=== PATIENT | male | born 1955 | race Two or more races ===

== ENCOUNTER 2023-07-11 12:46 | Inpatient (IN) | payer MEDICARE, OTHER ==
[~2023-07-11] VITALS: Ht 170.2 cm; Wt 77.7 kg
[2023-07-11 16:08] LABS: Basophils # (auto) 0 10 ^3/uL (0-0.2); Basophils % (auto) 0.3 % (0.0-2.0); Eosinophils # (auto) 0.1 10 ^3/uL (0-0.8); Eosinophils % (auto) 0.6 % (0.0-7.0); Hematocrit 38.9 % (41.0-53.0); Hemoglobin 13.3 g/dL (13.5-17.5); Lymphocytes # (auto) 1.3 10 ^3/uL (0.4-5.4); Lymphocytes % (auto) 14.5 % (10.0-50.0); Mean Corpuscular Hemoglobin 31.3 pg (28.0-32.0); Mean Corpuscular Hgb Conc. 34.1 g/dL (32.0-36.0); Mean Corpuscular Volume 91.6 fL (80.0-100.0); Monocytes # (auto) 0.7 10 ^3/uL (0-1.3); Monocytes % (auto) 7.8 % (0.0-12.0); Neutrophils # (auto) 6.6 10 ^3/uL (1.6-8.6); Neutrophils % (auto) 76.8 % (37.0-80.0); Red Blood Cells 4.25 10^6/uL (4.5-5.90); White Blood Cell 8.6 10^3/uL (4.4-10.8)
[2023-07-11 16:19] LABS: Alanine Aminotransferase 28 U/L (7-40); Albumin 4.2 g/dL (3.2-4.8); Alkaline Phosphatase 94 U/L (46-116); Anion Gap 8 (5-15); Aspartate Aminotransferase 20 U/L (13-40); BUN/Creatinine Ratio 17.3 (10.0-20.0); Bilirubin, Total 0.9 mg/dL (0.2-1.0); Blood Urea Nitrogen 13 mg/dL (9-23); Carbon Dioxide 25 mmol/L (20-30); Chloride 102 mmol/L (98-107); Glucose 136 mg/dL (74-106); Potassium 4.3 mmol/L (3.5-5.1); Sodium 135 mmol/L (136-145); Total Protein 6.9 g/dL (5.7-8.2)
[2023-07-11] MEDS: PIPERACILLIN-TAZOB 3.375GM 100 ML IV ONE (17:25)
[2023-07-11] MEDS: CLINDAMYCIN 300MG IV 50 ML IV ONE (17:26)
[2023-07-11 18:07] LABS: Urine Bacteria None Seen /hpf (None Seen); Urine WBC None Seen /hpf (0 - 3)
[2023-07-11] MEDS ORDERED: DOCUSATE SOD 100 MG CAP PO PRN (18:15)
[2023-07-11] MEDS ORDERED: DEXTROSE (50%) 50ML SYRG IV PRN (18:15)
[2023-07-11] MEDS ORDERED: ENOXAPARIN SOD 40 MG/0.4 ML SYRINGE SC SCH (18:15)
[2023-07-11] MEDS ORDERED: ONDANSETRON HCL 4 MG/2 ML VIAL IV PRN (18:15)
[2023-07-11 18:23] LABS: Urine Blood Negative /uL (Negative); Urine Clarity Clear (Clear); Urine Color Colorless (Yellow); Urine Protein, UAD Negative (Negative); Urine Specific Gravity 1.002 (1.001-1.035); Urine Urobilinogen Normal (Negative)
[2023-07-11 19:02] LABS: Prothrombin Time 10.5 sec (9.3-11.8)
[2023-07-11] MEDS: SODIUM CHLORIDE 0.9% 1,000 ML IV SCH (21:13)
[2023-07-11] MEDS: ENOXAPARIN SOD 80 MG/0.8ML SYRINGE SC SCH (21:13)
[2023-07-11] MEDS: InsuLIN REG 1unit/0.01ml Soln (100units/ml) SC SCH (21:40)
[2023-07-11] MEDS: ACCU-CHEK COMFORT CURVE STRIP VI SCH (21:40)
[2023-07-11] MEDS ORDERED: CLINDAMYCIN 300MG IV 50 ML IV SCH (22:00)
[2023-07-12] VITALS (8 sets, daily range): BP systolic 121–150; BP diastolic 72–85; PULSE 79–110; RESP 16–19; TEMP 97.2–98.6; O2SAT 95–99
[2023-07-12] MEDS: MORPHINE SULFATE INJ 2 MG/ml SYRG IV PRN (00:53)
[2023-07-12] MEDS ORDERED: LACT12CR17 EX (01:08)
[2023-07-12] MEDS ORDERED: DULO20CA PO (01:08)
[2023-07-12] MEDS ORDERED: ASCO500T11 PO (01:08)
[2023-07-12] MEDS ORDERED: ATOR40TA52 PO (01:08)
[2023-07-12] MEDS ORDERED: HYDR1TAB97 PO (01:08)
[2023-07-12] MEDS ORDERED: SITA100T7 PO (01:08)
[2023-07-12] MEDS ORDERED: HYDR12.59 PO (01:19)
[2023-07-12] MEDS ORDERED: CLOT1CRE56 TOP (01:19)
[2023-07-12] MEDS ORDERED: LATA0.0020 EACHEYE (01:19)
[2023-07-12] MEDS ORDERED: GABA-1250 PO (01:19)
[2023-07-12] MEDS ORDERED: FEXO-42 PO (01:19)
[2023-07-12] MEDS ORDERED: INSU100I70 SC (01:19)
[2023-07-12] MEDS ORDERED: TAMS0.4C36 PO (01:19)
[2023-07-12] MEDS ORDERED: DORZ2SOL18 EACHEYE (01:19)
[2023-07-12] MEDS ORDERED: NAP500T PO (01:19)
[2023-07-12] MEDS ORDERED: GLIP10TA9 PO (01:19)
[2023-07-12] MEDS ORDERED: LISI2.5T47 PO (01:19)
[2023-07-12] MEDS ORDERED: MULT-1018 PO (01:19)
[2023-07-12] MEDS ORDERED: METF-372 PO (01:19)
[2023-07-12] MEDS ORDERED: EMPA1TAB3 PO (01:19)
[2023-07-12] MEDS ORDERED: DOCU-94 PO (01:19)
[2023-07-12] MEDS ORDERED: ARIP2TAB PO (01:25)
[2023-07-12] MEDS: CLINDAMYCIN 300MG IV 50 ML IV SCH (01:38)
[2023-07-12 06:06] LABS: Basophils # (auto) 0 10 ^3/uL (0-0.2); Basophils % (auto) 0.3 % (0.0-2.0); Eosinophils # (auto) 0.1 10 ^3/uL (0-0.8); Eosinophils % (auto) 0.7 % (0.0-7.0); Hematocrit 37.5 % (41.0-53.0); Hemoglobin 12.9 g/dL (13.5-17.5); Lymphocytes # (auto) 1.3 10 ^3/uL (0.4-5.4); Mean Corpuscular Hemoglobin 31.8 pg (28.0-32.0); Mean Corpuscular Hgb Conc. 34.3 g/dL (32.0-36.0); Mean Corpuscular Volume 92.8 fL (80.0-100.0); Monocytes # (auto) 0.7 10 ^3/uL (0-1.3); Monocytes % (auto) 7.5 % (0.0-12.0); Neutrophils # (auto) 6.7 10 ^3/uL (1.6-8.6); Neutrophils % (auto) 76.5 % (37.0-80.0); Red Blood Cells 4.04 10^6/uL (4.5-5.90); Red Cell Distribution Width 14.4 % (11.8-14.3); White Blood Cell 8.8 10^3/uL (4.4-10.8)
[2023-07-12 06:30] LABS: Alanine Aminotransferase 24 U/L (7-40); Albumin 3.7 g/dL (3.2-4.8); Alkaline Phosphatase 88 U/L (46-116); Anion Gap 10 (5-15); BUN/Creatinine Ratio 15.4 (10.0-20.0); Blood Urea Nitrogen 16 mg/dL (9-23); Carbon Dioxide 23 mmol/L (20-30); Chloride 106 mmol/L (98-107); Glucose 229 mg/dL (74-106); Potassium 3.9 mmol/L (3.5-5.1); Sodium 139 mmol/L (136-145)
[2023-07-12 06:32] LABS: Aspartate Aminotransferase 24 U/L (13-40); Bilirubin, Total 0.6 mg/dL (0.2-1.0); Total Protein 5.6 g/dL (5.7-8.2)
[2023-07-12] MEDS: ENOXAPARIN SOD 40 MG/0.4 ML SYRINGE SC SCH (09:51)
[2023-07-12 10:05] LABS: Triglycerides 179 mg/dL (< 150)
[2023-07-12 10:06] LABS: LDL Cholesterol 97 mg/dL (< 100)
[2023-07-12 10:07] LABS: Cholesterol 155 mg/dL (< 200); HDL Cholesterol 44 mg/dL (40-59)
[2023-07-12] MEDS: NEOMYCIN-BACITRACIN-POLYM UNITDOSE PKG TOP OINT TOP SCH (13:00)
[2023-07-12] MEDS: ASPirin 81 mg TAB ONE (13:34)
[2023-07-12] MEDS: ASPirin 81 mg TAB PO ONE (13:37)
[2023-07-12] MEDS: LISINOPRIL 5 MG TAB PO ONE (16:18)
[2023-07-12] MEDS: ATORVASTATIN 20 MG TAB PO SCH (21:22)
[2023-07-13 05:00] VITALS: BP 131/82; PULSE 101; RESP 17; TEMP 98; O2SAT 98
[2023-07-13 08:27] VITALS: BP 147/81; PULSE 103; RESP 19; TEMP 97.8; O2SAT 96
[2023-07-13] MEDS ORDERED: LISINOPRIL 5 MG TAB PO SCH (10:00)
[2023-07-13] MEDS ORDERED: ASPirin 81 mg TAB PO SCH (10:00)
[2023-07-14 09:16] LABS: Hepatitis B Surface Antigen Negative (Negative)
[2023-07-14 09:37] LABS: Hepatitis C Antibody Negative (Negative)
== END 2023-07-13 09:45 | disposition left against medical advice (07) | DRG 603 ==
LOC: ER 12:46 → TELE 18:12 → TELE-CENTR 18:12
PROVIDERS: ADMIT Nurse Practitioner Family; ATTEND Nurse Practitioner Family
DX: L03.116 Cellulitis of left lower limb (principal); L97.329 Non-pressure chronic ulcer of left ankle with unspecified severity; I65.01 Occlusion and stenosis of right vertebral artery; E11.621 Type 2 diabetes mellitus with foot ulcer; I10 Essential (primary) hypertension; Z53.29 Procedure and treatment not carried out because of patient's decision for other reasons; E78.5 Hyperlipidemia, unspecified; E11.65 Type 2 diabetes mellitus with hyperglycemia; F32.A Depression, unspecified; N40.0 Benign prostatic hyperplasia without lower urinary tract symptoms; E66.9 Obesity, unspecified; R29.6 Repeated falls; E11.40 Type 2 diabetes mellitus with diabetic neuropathy, unspecified; Z83.3 Family history of diabetes mellitus; Z91.81 History of falling; Z68.26 Body mass index [BMI] 26.0-26.9, adult; Z79.4 Long term (current) use of insulin; H40.1120 Primary open-angle glaucoma, left eye, stage unspecified
CPT/HCPCS: 36415; 70450; 71045; 73590; 80053; 80061; 81001; 82962; 83036; 83605; 83880; 84443; 84484; 85025; 85610; 86803; 87040; 87340; 93005; 93306; 93886; 93926; 93971; 96365; 96368; 96372; 97163; G0378; J1815; J2543; J3490

== ENCOUNTER 2025-01-03 14:21 | Inpatient (IN) | payer MEDICARE, MEDICAID ==
[~2025-01-03] VITALS: Ht 170.2 cm; Wt 71.8 kg
[~2025-01-03 14:21] MED LIST: ARIP2TAB PO; ASCO500T11 PO; ATOR40TA52 PO; CLOT1CRE56 TOP; DOCU-94 PO; DORZ2SOL18 EACHEYE; DULO20CA PO; EMPA1TAB3 PO; FEXO-42 PO; GABA-1250 PO; GLIP10TA9 PO; HYDR12.59 PO; HYDR1TAB97 PO; INSU100I70 SC; LACT12CR17 EX; LATA0.0020 EACHEYE; LISI2.5T47 PO; METF-372 PO; MULT-1018 PO; NAP500T PO; SITA100T7 PO; TAMS0.4C39 PO
--- NOTE | 2025-01-03 14:38 | ED.PDOC ---
Musculoskeletal HPI Comments This is a 69 year old male KAL presenting to the ED with chief complaint of right shoulder pain s/p fall. Patient reports that he had gone into his backyard when he began to experience dizziness where the room was spinning, causing him to fall over onto his right side, injuring his right shoulder/arm. Patient relays that he now has severe pain to his right shoulder and is unable to move it. Patient notes having a mild headache at this time. Patient denies any numbness, weakness, tingling, or LOC. Time Seen by MD: 14:34 Primary Care Provider: OUT OF AREA Reviewed Notes: Nurses Notes, Medications, Allergies Allergies: Coded Allergies: NO KNOWN ALLERGIES (Unverified , 07/11/23) Home Meds Reported Medications Aripiprazole (Abilify) 2 Mg Tab, 1 TAB PO DAILY, #30 TAB 2 Refills 07/12/23 Tamsulosin Hcl (Tamsulosin Hcl) 0.4 Mg Cap, 1 CAP PO DAILY, #30 CAP 5 Refills 07/12/23 Naproxen (NAPROSYN TABLET) 500 Mg Tb, 1 TAB PO BID, #60 TAB 1 Refill 07/12/23 Multiple Vitamin (Multivitamins) Tab, 1 TAB PO DAILY, #90 TAB 3 Refills 07/12/23 Metformin Hydrochloride (Metformin Hcl) 1,000 Mg Tab, 1 TAB PO BID, #60 TAB 5 Refills 07/12/23 Lisinopril (Lisinopril) 2.5 Mg Tab, 1 TAB PO DAILY, #30 TAB 5 Refills 07/12/23 Latanoprost (Xalatan) 0.005 % Marcia, 1 DROP EACHEYE QPM, #2.5 ML 6 Refills 07/12/23 Insulin Glargine-Yfgn (Insulin Glargine) 100 Unit/Ml Inj, 100 UNIT SC, INJ 07/12/23 Hydrochlorothiazide (Hydrochlorothiazide) 12.5 Mg Cap, 1 CAP PO DAILY, #30 CAP 5 Refills 07/12/23 Glipizide (Glipizide) 10 Mg Tab, 1 TAB PO BID, #60 TAB 5 Refills 07/12/23 Gabapentin (Gabapentin) 300 Mg Cap, 1 CAP PO TID, #90 CAP 5 Refills 07/12/23 Fexofenadine Hydrochloride (CAROLA ALLERGY) 180 Mg Tab, 1 TAB PO DAILY, #30 TAB 2 Refills 07/12/23 Empagliflozin (Jardiance) 25 Mg Tab, 25 MG PO, TAB 07/12/23 Dorzolamide-Timolol (Dorzolamide Hcl/Timolol M) 1 Ml Marcia, 1 DROP EACHEYE BID, #10 ML 6 Refills 07/12/23 Docusate Sodium (Colace) 100 Mg Cap, 1 CAP PO BID, #30 CAP 07/12/23 Clotrimazole (Lotrimin) 1 Applic Ap, 1 APPLIC TOP, APPLIC 07/12/23 Atorvastatin Calcium (ATORVASTATIN CALCIUM) 40 Mg Tab, 1 TAB PO DAILY, #30 TAB 5 Refills 07/12/23 Ascorbic Acid (VITAMIN C TABLET) 500 Mg Tb, 1 TAB PO DAILY, #30 TAB 3 Refills 07/12/23 Lactic Acid (Ammonium Lactate) 12 % Cre, 12 % EX, CRE 07/12/23 Sitagliptin Phosphate (Januvia) 100 Mg Tab, 1 TAB PO DAILY, #30 TAB 5 Refills 07/12/23 Hydrocodone-Acetaminophen (Hydrocodone/Acetaminophen 5-325 mg) 1 Tab Tab, 1 TAB PO, TAB 07/12/23 Duloxetine Hcl (Cymbalta) 20 Mg Cap, 1 CAP PO DAILY, #30 CAP 2 Refills 07/12/23 Information Source: Patient, Emergency Med Personnel Mode of Arrival: EMS Location: Right Extremity Location: Arm, Shoulder Timing: Hours Prehospital treatment: None Severity: Moderate Able to Move Extremity: No Bear Weight: Fully Pain: Moderate Mechanism: Spontaneous Circumstances: Fall Onset of Symptoms: After Trauma Symptoms: Pain DVT Risk Factors: NONE Last Tetanus: Unknown Past Medical History PAST MEDICAL HISTORY: DM, High Lipids, HTN Past Medical History (Other): Vertigo Surgical History: Denies all surgeries Family History Family History: Reviewed,noncontributory to illness, Unknown Social History Smoker: Non-Smoker Alcohol: Denies ETOH Use Drugs: Denies Drug Use Lives In: Home Constitutional: denies: chills, diaphoresis, fatigue, fever, malaise, sweats, weakness, others EENTM: denies: blurred vision, double vision, ear bleeding, ear discharge, ear drainage, ear pain, ear ringing, eye pain, eye redness, hearing loss, mouth pain, mouth swelling, nasal discharge, nose bleeding, nose congestion, nose pain, photophobia, tearing, throat pain, throat swelling, voice changes, others Respiratory: denies: cough, hemoptysis, orthopnea, SOB at rest, shortness of breath, SOB with excertion, stridor, wheezing, others Cardiovascular: denies: chest pain, dizzy spells, diaphoresis, Dyspnea on exertion, edema, irregular heart beat, left arm pain, lightheadedness, palpitations, PND, syncope, others Gastrointestinal: denies: abdomen distended, abdominal pain, blood streaked bowels, constipated, diarrhea, dysphagia, difficulty swallowing, hematemesis, melena, nausea, poor appetite, poor fluid intake, rectal bleeding, rectal pain, vomiting, others Genitourinary: denies: burning, dysuria, flank pain, frequency, hematuria, incontinence, penile discharge, penile sore, pain, testicle pain, testicle swelling, urgency, others Neurological: reports: dizziness; denies: fainting, headache, left sided numbness, left sided weakness, numbness, paresthesia, pre-existing deficit, right sided numbness, right sided weakness, seizure, speech problems, tingling, tremors, weakness, others Musculoskeletal: reports: others (Right shoulder and right arm pain); denies: back pain, gout, joint pain, joint swelling, muscle pain, muscle stiffness, neck pain Integumetry: denies: bruises, change in color, change in hair/nails, dryness, laceration, lesions, lumps, rash, wounds, others Allergic/Immunocompromised: denies: Difficulty Healing, Frequent Infections, Hives, Itching, others Hematologic/Lymphatic: denies: anemia, blood clots, easy bleeding, easy bruising, swollen glands, others Endocrine: denies: excessive hunger, excessive sweating, excessive thirst, excessive urination, flushing, intolerance to cold, intolerance to heat, unexplained weight gain, unexplained weight loss, others Psychiatric: denies: anxiety, bipolar disorder, depression, hopeless, panic disorder, schizophrenia, sleepless, suicidal, others All Other Systems: Reviewed and Negative Physical Exam General Appearance: No Apparent Distress, Normal HEENT: Normal ENT Inspection, Pharynx Normal, TMs Normal Neck: Full Range of Motion, Non-Tender, Normal, Normal Inspection Respiratory: Chest Non-Tender, Lungs Clear, No Accessory Muscle Use, No Respiratory Distress, Normal Breath Sounds Cardiovascular: No Edema, No JVD, No Murmur, No Gallop, Normal Peripheral Pulses, Regular Rate/Rhythm Breast Exam: Deferred Gastrointestinal: No Organomegaly, Non Tender, No Pulsatile Mass, Normal Bowel Sounds, Soft Genitalia: Deferred Pelvic: Deferred Rectal: Deferred Extremities: No calf tenderness, Normal capillary refill, Normal inspection, Normal range of motion, Non-tender, No pedal edema Musculoskeletal : Location: Right Extremity Location: Arm, Shoulder Apperance: Tenderness (Right shoulder and humerus tenderness.) Neurologic: Alert, bight maker II-XII nml as Tested, No Motor Deficits, Normal Affect, Normal Mood, No Sensory Deficits Cerebellar Function: Normal Reflexes: Normal Skin: Dry, Normal Color, Warm Lymphatic: No Adenopathy Was a procedure done? Was a procedure done?: No Differential Diagnosis EXT Differential Diagnosis: Fracture, Sprain, Dislocation, Contusion, Strain, Other (Syncope, vertigo, vertebrobasilar artery insufficiency, mechanical fall) X-Ray, Labs, Meds, VS Vital Signs Date Time Temp Pulse Resp B/P (MAP) Pulse Ox O2 Delivery O2 Flow Rate FiO2 01/03/25 14:33 98.2 67 18 155/111 98 98.2 Lab Test 01/03/25 16:26 01/03/25 15:32 01/03/25 14:38 Range/Units Troponin I High Sensitivity < 3 L < 3 L </=54 ng/L White Blood Count 11.6 H 4.4-10.8 10^3/uL Red Blood Count 4.42 L 4.5-5.90 10^6/uL Hemoglobin 11.8 L 13.5-17.5 g/dL Hematocrit 35.8 L 41.0-53.0 % Mean Corpuscular Volume 81.0 80.0-100.0 fL Mean Corpuscular Hemoglobin 26.6 L 28.0-32.0 pg Mean Corpuscular Hemoglobin Concent 32.9 32.0-36.0 g/dL Red Cell Distribution Width 16.6 H 11.8-14.3 % Platelet Count 358 140-450 10^3/uL Mean Platelet Volume 8.3 6.9-10.8 fL Neutrophils (%) (Auto) 78.0 37.0-80.0 % Lymphocytes (%) (Auto) 15.7 10.0-50.0 % Monocytes (%) (Auto) 4.7 0.0-12.0 % Eosinophils (%) (Auto) 1.2 0.0-7.0 % Basophils (%) (Auto) 0.4 0.0-2.0 % Neutrophils # (Auto) 9.0 H 1.6-8.6 10 ^3/uL Lymphocytes # (Auto) 1.8 0.4-5.4 10 ^3/uL Monocytes # (Auto) 0.5 0-1.3 10 ^3/uL Eosinophils # (Auto) 0.1 0-0.8 10 ^3/uL Basophils # (Auto) 0 0-0.2 10 ^3/uL Nucleated Red Blood Cells 0.0 % Sodium Level 141 136-145 mmol/L Potassium Level 4.6 3.5-5.1 mmol/L Chloride Level 107 98-107 mmol/L Carbon Dioxide Level 24 20-31 mmol/L Anion Gap 10 5-15 Blood Urea Nitrogen 30 H 9-23 mg/dL Creatinine 1.08 0.700-1.30 mg/dL Glomerular Filtration Rate Calc 75 >90 mL/min BUN/Creatinine Ratio 27.8 H 10.0-20.0 Serum Glucose 193 H 74-106 mg/dL Calcium Level 9.3 8.7-10.4 mg/dL POC Glucose 173 H 70-106 mg/dl [place] [id number] Ph: [phone] DIAGNOSTIC IMAGING Diagnostic Imaging Report : [id number] Signed PATIENT: MARCELLUS RAMIREZACCT: [id number] UNIT: [id number] : 1955 LOC: ER ROOM / BED: / AGE / SEX: 69 / M ADM STATUS: REG ER SERVICE 1430 ORDERING PHYSICIAN: ABRIL CHAPPELL MD PROCEDURE(s): HWOCT - HEAD WITHOUT CONTRAST REASON: headache, vertigo ORDER NUMBER(s): [id number], ACCESSION NUMBER(s): [id number] CT HEAD WITHOUT CONTRAST INDICATION: headache, vertigo EXAM DATE: 01/03/2025 03:03 PM COMPARISON: CT HEAD WITHOUT CONTRAST on DOS: 07/11/23 RADIATION DOSE: CTDIvol: 61 mGy, DLP: 1117 mGy*cm PROCEDURE: CT scans of the head were obtained from the vertex to the skull base. Sagittal and coronal reconstructions were provided. All CT scans at this medical facility are performed using dose modulation techniques as appropriate to a performed exam including the following: Automated exposure control was utilized; adjustment of the MA and/or KV according to patient size; and use of iterative reconstruction technique. FINDINGS: There is sulcal and ventricular prominence. The brainshows normal morphology and barclay-white matter differentiation, without intracranial hemorrhage, extra-axial fluid collection, mass effect or acute large vessel infarct. The ventricles are normal in size. The basal cisterns are patent. The skull and visible facial bones are intact. The paranasal sinuses, mastoid air cells and middle ear cavities are well-aerated. The soft tissues of the scalp are unremarkable. IMPRESSION: No acute intracranial abnormality. ATED BY: CHAY RILEY MD DICTATED DATE/TIME: 01/03/251536 SIGNED BY: CHAY RILEY MD SIGNED DATE/TIME: 01/03/251536 CC: [place] [address] Ph: [phone] DIAGNOSTIC IMAGING Diagnostic Imaging Report : [id number] Signed PATIENT: MARCELLUS RAMIREZACCT: [id number] UNIT: [id number] : 1955 LOC: ER ROOM / BED: / AGE / SEX: 69 / M ADM STATUS: REG ER SERVICE 1430 ORDERING PHYSICIAN: ABRIL CHAPPELL MD PROCEDURE(s): RSHD2 - R SHOULDER 2+ VIEW XRAY REASON: injury ORDER NUMBER(s): [id number], ACCESSION NUMBER(s): [id number] EXAM: XY R SHOULDER 2+ VIEW XRAY CLINICAL INDICATION: injury TECHNIQUE: XY R SHOULDER 2+ VIEW XRAY Comparison: XY R HUMERUS XRAY on DOS: 01/03/25, XY R CLAVICLE COMPLETE XRAY on DOS: 01/03/25 FINDINGS/IMPRESSION: Comminuted and displaced proximal right humeral neck / head fracture. ATED BY: NASIM GANNON MD DICTATED DATE/TIME: 01/03/25 1530 SIGNED BY: NASIM GANNON MD SIGNED DATE/TIME: 01/03/25 1530 CC: [address] [address] Ph: [phone] DIAGNOSTIC IMAGING Diagnostic Imaging Report : [id number] Signed PATIENT: MARIA G RAMIREZT: [id number] UNIT: [id number] : 1955 LOC: ER ROOM / BED: / AGE / SEX: 69 / M ADM STATUS: REG ER SERVICE 1430 ORDERING PHYSICIAN: ABRIL CHAPPELL MD PROCEDURE(s): RHUM - R HUMERUS XRAY REASON: injury ORDER NUMBER(s): [id number], ACCESSION NUMBER(s): [id number] EXAM: XY R HUMERUS XRAY CLINICAL INDICATION: injury TECHNIQUE: XY R HUMERUS XRAY Comparison: XY R FOREARM XRAY on DOS: 01/03/25, XY R ELBOW 2V XRAY on DOS: 01/03/25, XY R SHOULDER 2+ VIEW XRAY on DOS: 01/03/25 FINDINGS/IMPRESSION: Comminuted and displaced proximal right humeral neck fracture. ATED BY: NASIM GANNON MD DICTATED DATE/TIME: 01/03/25 1529 SIGNED BY: NASIM GANNON MD SIGNED DATE/TIME: 01/03/25 1529 CC: [address] [id number] Ph: [phone] DIAGNOSTIC IMAGING Diagnostic Imaging Report : [id number] Signed PATIENT: MARIA G RAMIREZT: [id number] UNIT: [id number] : 1955 LOC: ER ROOM / BED: / AGE / SEX: 69 / M ADM STATUS: REG ER SERVICE 1430 ORDERING PHYSICIAN: ABRIL CHAPPELL MD PROCEDURE(s): RFOR - R FOREARM XRAY REASON: injury ORDER NUMBER(s): [id number], ACCESSION NUMBER(s): [id number] EXAM: XY R FOREARM XRAY CLINICAL INDICATION: injury TECHNIQUE: XY R FOREARM XRAY Comparison: XY R ELBOW 2V XRAY on DOS: 01/03/25, XY R HUMERUS XRAY on DOS: 01/03/25 FINDINGS/IMPRESSION: There is no evidence of acute fracture or dislocation. The visualized joint space is well maintained. The alignment is anatomical. There is no radiopaque foreign body. ATED BY: NASIM GANNON MD DICTATED DATE/TIME: 01/03/25 152 SIGNED BY: NASIM GANNON MD SIGNED DATE/TIME: 01/03/25 152 CC: [place] [address] Ph: [phone] DIAGNOSTIC IMAGING Diagnostic Imaging Report : [id number] Signed PATIENT: MARCELLUS RAMIREZACCT: [id number] UNIT: [id number] : 1955 LOC: ER ROOM / BED: / AGE / SEX: 69 / M ADM STATUS: REG ER SERVICE 1430 ORDERING PHYSICIAN: ABRIL CHAPPELL MD PROCEDURE(s): RELB - R ELBOW 2V XRAY REASON: injury ORDER NUMBER(s): [id number], ACCESSION NUMBER(s): [id number] EXAM: XY R ELBOW 2V XRAY CLINICAL INDICATION: injury TECHNIQUE: XY R ELBOW 2V XRAY Comparison: XY R FOREARM XRAY on DOS: 01/03/25, XY R HUMERUS XRAY on DOS: 01/03/25 FINDINGS/IMPRESSION: There is no evidence of acute fracture or dislocation. The visualized joint space is well maintained. The alignment is anatomical. There is no radiopaque foreign body. ATED BY: NASIM GANNON MD DICTATED DATE/TIME: 01/03/251528 SIGNED BY: NASIM GANNON MD SIGNED DATE/TIME: 01/03/251528 CC: [place] [address] Ph: [phone] DIAGNOSTIC IMAGING Diagnostic Imaging Report : [id number] Signed PATIENT: MARIA G RAMIREZT: [id number] UNIT: [id number] : 1955 LOC: ER ROOM / BED: / AGE / SEX: 69 / M ADM STATUS: REG ER SERVICE 1430 ORDERING PHYSICIAN: ABRIL CHAPPELL MD PROCEDURE(s): RCLAV - R CLAVICLE COMPLETE XRAY REASON: injury ORDER NUMBER(s): [id number], ACCESSION NUMBER(s): [id number] EXAM: XY R CLAVICLE COMPLETE XRAY CLINICAL INDICATION: injury TECHNIQUE: XY R CLAVICLE COMPLETE XRAY Comparison: XY R SHOULDER 2+ VIEW XRAY on DOS: 01/03/25, XY CHEST XRAY 1 VIEW on DOS: 01/03/25, XY CHEST XRAY 1 VIEW on DOS: 07/12/23 FINDINGS/IMPRESSION: No fracture involving the right clavicle. Comminuted and displaced right proximal humeral neck/head fracture. ATED BY: NASIM GANNON MD DICTATED DATE/TIME: 01/03/25 153 SIGNED BY: NASIM GANNON MD SIGNED DATE/TIME: 01/03/25 153 CC: [address] [address] Ph: [phone] DIAGNOSTIC IMAGING Diagnostic Imaging Report : [id number] Signed PATIENT: MARIA G RAMIREZT: [id number] UNIT: [id number] : 1955 LOC: ER ROOM / BED: / AGE / SEX: 69 / M ADM STATUS: REG ER SERVICE 1430 ORDERING PHYSICIAN: ABRIL CHAPPELL MD PROCEDURE(s): CXR1 - CHEST XRAY 1 VIEW REASON: headache, vertigo ORDER NUMBER(s): [id number], ACCESSION NUMBER(s): [id number] XY CHEST XRAY 1 VIEW, HISTORY: headache, vertigo COMPARISON: XY CHEST XRAY 1 VIEW on DOS: 07/12/23 XY CHEST XRAY 1 VIEW on DOS: 07/12/23 TECHNICAL DATA: 1 view of the chest was obtained. FINDINGS: Lines and tubes: None Cardiomediastinal silhouette: normal Pulmonary vasculature: normal Lung expansion: low Lung airspace: normal Lung interstitium: normal Pleura: normal Pneumothorax: no Bones: Right humerus neck fracture Other: no IMPRESSION: No acute intrathoracic abnormality. ATED BY: CHAY RILEY MD DICTATED DATE/TIME: 01/03/25 1529 SIGNED BY: CHAY RILEY MD SIGNED DATE/TIME: 01/03/25 1529 CC: Images Reviewed?: Images reviewed and evaluated by me Time of 1ST Reevaluation: 15:31 Reevaluation 1ST: Unchanged Patient Education/Counseling: Diagnosis, Treatment, Prognosis, Need For Follow Up Family Education/Counseling: No Family Present Comments This is a patient who presents with a mechanical fall after is severe bout of a sudden episode of vertigo. Patient has over a comminuted right proximal humeral fracture. At baseline, patient has difficulty walking with a cane, per his girlfriend. Now the patient has a fracture and has vertigo he is not safe to be discharged he will be admitted for pain control for ortho eval and social director assessment for safe discharge Additional Information Reviewed patient's previous visit(s): 07/11/23 for cellulitis The following tests were ordered, and results were reviewed by me: CBC, BMP, Troponin, EKG Additional information was gathered from interviewing the following independent historian: EMS I reviewed and agreed with the following test results read by other provider: XR Right forearm, XR Right Humerus, XR Right Shoulder, XR Right Elbow, XR Right Clavicle, XR Chest, CT Head I discussed treatments and results with medical personnel and: PATIENT Comprehensive systems review obtained and negative except for what is stated in the HPI. Departure 1 Departure Time of Disposition: 16:50 Impression: Primary Impression: Vertigo Additional Impressions: Falling Proximal humeral fracture Qualified Codes: S42.291A - Other displaced fracture of upper end of right humerus, initial encounter for closed fracture Disposition: ADMITTED INPATIENT Condition: Stable Discharged With: Self Critical Care Note Critical Care Time?: Yes (55 min-critical care time only) Critical care comment: due to concerns for patient's condition deteriorating, the care required my highest level of attention and readiness to intervene. i assessed the patient's condition, ordered the proper tests and treatments, reassessed for response and reviewed the results. i communicated with medical personnel and formulated a plan of care. total critical care time does not include any procedures Stability Stability form required: No Heart Score Heart Score: Heart Score Response (Comments) Value History N/A 0 EKG N/A 0 Age N/A 0 Risk Factors N/A 0 Troponin N/A 0 Total 0 I personally scribed for ABRIL CHAPPELL MD ([email or web address]) on 01/03/25 at 14:38. Electronically submitted by Mark Ramires ([email or web address]). I personally scribed for ABRIL CHAPPELL MD ([email or web address]) on 01/03/25 at 16:00. Electronically submitted by Mark Ramires ([email or web address]). ABRIL CHAPPELL MD Jan 03, 2025 14:38
--- NOTE | 2025-01-03 15:31 | DVH ---
EXAM: XY R HUMERUS XRAY CLINICAL INDICATION: injury TECHNIQUE: XY R HUMERUS XRAY Comparison: XY R FOREARM XRAY on DOS: 01/03/25, XY R ELBOW 2V XRAY on DOS: 01/03/25, XY R SHOULDER 2+ V IEW XRAY on DOS: 01/03/25 FINDINGS/IMPRESSION: Comminuted and displaced proximal right humeral neck fracture.
--- NOTE | 2025-01-03 15:31 | DVH ---
EXAM: XY R FOREARM XRAY CLINICAL INDICATION: injury TECHNIQUE: XY R FOREARM XRAY Comparison: XY R ELBOW 2V XRAY on DOS: 01/03/25, XY R HUMERUS XRAY on DOS: 01/03/25 FINDINGS/IMPRESSION: There is no evidence of acute fracture or dislocation. The visualized joint space is well maintained. The alignment is anatomical. There is no radiopaque foreign body.
--- NOTE | 2025-01-03 15:31 | DVH ---
EXAM: XY R ELBOW 2V XRAY CLINICAL INDICATION: injury TECHNIQUE: XY R ELBOW 2V XRAY Comparison: XY R FOREARM XRAY on DOS: 01/03/25, XY R HUMERUS XRAY on DOS: 01/03/25 FINDINGS/IMPRESSION: There is no evidence of acute fracture or dislocation. The visualized joint space is well maintained. The alignment is anatomical. There is no radiopaque foreign body.
--- NOTE | 2025-01-03 15:31 | DVH ---
XY CHEST XRAY 1 VIEW, HISTORY: headache, vertigo COMPARISON: XY CHEST XRAY 1 VIEW on DOS: 07/12/23 XY CHEST XRAY 1 VIEW on DOS: 07/12/23 TECHNICAL DATA: 1 view of the chest was obtained. FINDINGS: Lines and tubes: None Cardiomediastinal silhouette: normal Pulmonary vasculature: normal Lung expansion: low Lung airspace: normal Lung interstitium: normal Pleura: normal Pneumothorax: no Bones: Right humerus neck fracture Other: no IMPRESSION: No acute intrathoracic abnormality.
--- NOTE | 2025-01-03 15:32 | DVH ---
EXAM: XY R CLAVICLE COMPLETE XRAY CLINICAL INDICATION: injury TECHNIQUE: XY R CLAVICLE COMPLETE XRAY Comparison: XY R SHOULDER 2+ VIEW XRAY on DOS: 01/03/25, XY CHEST XRAY 1 VIEW on DOS: 01/03/25, XY CHES T XRAY 1 VIEW on DOS: 07/12/23 FINDINGS/IMPRESSION: No fracture involving the right clavicle. Comminuted and displaced right proximal humeral neck/head fracture.
--- NOTE | 2025-01-03 15:33 | DVH ---
EXAM: XY R SHOULDER 2+ VIEW XRAY CLINICAL INDICATION: injury TECHNIQUE: XY R SHOULDER 2+ VIEW XRAY Comparison: XY R HUMERUS XRAY on DOS: 01/03/25, XY R CLAVICLE COMPLETE XRAY on DOS: 01/03/25 FINDINGS/IMPRESSION: Comminuted and displaced proximal right humeral neck / head fracture.
--- NOTE | 2025-01-03 15:40 | DVH ---
CT HEAD WITHOUT CONTRAST INDICATION: headache, vertigo EXAM DATE: 01/03/2025 03:03 PM COMPARISON: CT HEAD WITHOUT CONTRAST on DOS: 07/11/23 RADIATION DOSE: CTDIvol: 61 mGy, DLP: 1117 mGy*cm PROCEDURE: CT scans of the head were obtained from the vertex to the skull base. Sagittal and coronal reconstructions were provided. All CT scans at this medical facility are performed using dose modulation techniques as appropriate t o a performed exam including the following: Automated exposure control was utilized; adjustment of th e MA and/or KV according to patient size; and use of iterative reconstruction technique. FINDINGS: There is sulcal and ventricular prominence. The brainshows normal morphology and barclay-whi te matter differentiation, without intracranial hemorrhage, extra-axial fluid collection, mass effect or acute large vessel infarct. The ventricles are normal in size. The basal cisterns are patent. The skull and visible facial bones are intact. The paranasal sinuses, mastoid air cells and middle ear c avities are well-aerated. The soft tissues of the scalp are unremarkable. IMPRESSION: No acute intracranial abnormality.
[2025-01-03 15:57] LABS: Hematocrit 35.8 % (41.0-53.0); Hemoglobin 11.8 g/dL (13.5-17.5); Mean Corpuscular Hemoglobin 26.6 pg (28.0-32.0); Mean Corpuscular Volume 81.0 fL (80.0-100.0); Nucleated Red Blood Cells % 0.0 %
[2025-01-03 16:01] LABS: Chloride 107 mmol/L (98-107); Potassium 4.6 mmol/L (3.5-5.1); Sodium 141 mmol/L (136-145)
[2025-01-03 16:02] LABS: Anion Gap 10 (5-15); Calcium 9.3 mg/dL (8.7-10.4); Carbon Dioxide 24 mmol/L (20-31)
[2025-01-03 16:07] LABS: BUN/Creatinine Ratio 27.8 (10.0-20.0)
[2025-01-03 16:09] LABS: Blood Urea Nitrogen 30 mg/dL (9-23); Glucose 193 mg/dL (74-106)
--- NOTE | 2025-01-03 19:44 | DVHINCON2 ---
Consult Note Consult Consult Note History of Present Illness: The patient was evaluated in the Emergency Department following a ground-level fall resulting in right shoulder pain. The patient reports multiple recent falls over the past several months associated with balance difficulties. No loss of consciousness or other acute injuries were reported. Imaging: Right shoulder X-ray was reviewed and demonstrates a proximal humerus fracture. No dislocation or additional acute osseous injury is identified. Physical Examination: RUE General: Patient is awake, alert, and in no apparent distress. Inspection: No open wounds, swelling noted around the right shoulder. Palpation: Tenderness over proximal humerus region. Range of Motion: Limited secondary to pain at the right shoulder. Elbow/Wrist/Hand: Range of motion full and intact. Patient able to wiggle fingers without difficulty. Neurovascular: Intact distally; capillary refill <2 seconds, sensation preserved. Other Extremities: Unremarkable. Assessment: 1. Right proximal humerus fracture closed, acute. 2. Recurrent falls with balance issues. Plan: Discussed imaging and findings with patient and ER team. Definitive treatment: Shoulder replacement surgery (hemiarthroplasty or reverse total shoulder arthroplasty) recommended as outpatient procedure once medically optimized. Acute management: RECOMMENDED TO ER PROVIDER Apply sling for immobilization. Pain control to be managed by ER team. Neurovascular checks to continue while in ER and upon discharge. Follow-up: Outpatient [facility] orthopedic follow-up for surgical planning.F/U IN 1 WEEK OR EARLY IF NEEDED Fall precautions: Advised given recurrent falls; consider referral for physical therapy and balance evaluation. All questions were answered; patient and ER provider verbalized understanding of plan. Agree with above plan. Plan discussed with: Patient, Other (ER PROVIDER) Visit Coding Surgery Date of Service if different f: Jan 03, 2025 Billing Provider: MAURICE KURTZ Surgery Visit Codes: 03787 - INP CONSULT <55 MIN MAURICE KURTZ Jan 03, 2025 19:44 RENAY GANNON MD Jan 04, 2025 07:08
[2025-01-03] MEDS ORDERED: MECLIZINE HCL 25 MG TAB PO PRN (20:00)
[2025-01-03] MEDS: fentaNYL CITRATE 100 MCG/2 ML VL IV ONE (20:21)
[2025-01-03] MEDS ORDERED: ONDANSETRON HCL 4 MG/2 ML VIAL IV PRN (20:45)
[2025-01-03] MEDS ORDERED: ACETAMINOPHEN 325 MG TAB PO PRN (20:45)
[2025-01-03] MEDS ORDERED: DEXTROSE (50%) 50ML SYRG IV PRN (20:45)
[2025-01-03] MEDS ORDERED: MORPHINE SULFATE INJ 2 MG/ml SYRG IV PRN (20:45)
--- NOTE | 2025-01-03 20:52 | DVHHP2 ---
History of Present Illness Reason for Visit: Right shoulder pain History of Present Illness 69-year-old male presents for evaluation of right shoulder pain. Patient reports that today while taking his dogs out to the yd he had a vertigo episode where he fell and landed on his right side. He states being unable to move his right shoulder. Denies numbness or tingling to right arm. No head trauma or loss of consciousness. Past Medical History Dyslipidemia, hypertension, diabetes mellitus, vertigo Past Surgical History Denies Family History Noncontributory Smoke: No ALCOHOL: none Drugs: None Lives: with Family Review of Systems Review of Systems Review of systems are currently negative otherwise addressed in HPI. Allergies: Coded Allergies: NO KNOWN ALLERGIES (Unverified , 07/11/23) Medications Current Medications Medications Dose Ordered Sig/Freedom Route Start Time Stop Time Status Last Admin Dose Admin Meclizine HCl 25 mg Q6HPRN PRN PO 01/03/25 20:00 Exam Vital Signs Vital Signs Date Time Temp Pulse Resp B/P (MAP) Pulse Ox O2 Delivery O2 Flow Rate FiO2 01/03/25 20:21 122/63 01/03/25 20:02 102 20 99 Room Air 01/03/25 20:02 97.3 97.3 Exam Gen: 69-year-old male in mild distress Skin: Warm, dry, normal color and texture, no rash. HEENT: Normocephalic atraumatic, mucous membranes moist and pink. Neck: Cervical and supraclavicular nodes normal without enlargement, trachea is midline, thyroid gland is normal without masses. Pulmonary: Clear to auscultation and percussion bilaterally. Cardiac: Regular rate and rhythm. No murmur Abdomen: Soft, nontender, nondistended, bowel sounds present all 4 quadrants, no guarding, no rigidity, no organomegaly. Extremities: No cyanosis, clubbing, right arm on a sling with positive distal pulses Neuro: Cranial nerves II through XII grossly intact, normal affect and speech, no focal motor deficits. Labs/Xrays ORDERING PHYSICIAN: ABRIL CHAPPELL MD PROCEDURE(s): CXR1 - CHEST XRAY 1 VIEW REASON: headache, vertigo ORDER NUMBER(s): [id number], ACCESSION NUMBER(s): [id number] XY CHEST XRAY 1 VIEW, HISTORY: headache, vertigo COMPARISON: XY CHEST XRAY 1 VIEW on DOS: 07/12/23 XY CHEST XRAY 1 VIEW on DOS: 07/12/23 TECHNICAL DATA: 1 view of the chest was obtained. FINDINGS: Lines and tubes: None Cardiomediastinal silhouette: normal Pulmonary vasculature: normal Lung expansion: low Lung airspace: normal Lung interstitium: normal Pleura: normal Pneumothorax: no Bones: Right humerus neck fracture Other: no IMPRESSION: No acute intrathoracic abnormality. RING PHYSICIAN: ABRIL CHAPPELL MD PROCEDURE(s): RSHD2 - R SHOULDER 2+ VIEW XRAY REASON: injury ORDER NUMBER(s): [id number], ACCESSION NUMBER(s): [id number] EXAM: XY R SHOULDER 2+ VIEW XRAY CLINICAL INDICATION: injury TECHNIQUE: XY R SHOULDER 2+ VIEW XRAY Comparison: XY R HUMERUS XRAY on DOS: 01/03/25, XY R CLAVICLE COMPLETE XRAY on DOS: 01/03/25 FINDINGS/IMPRESSION: Comminuted and displaced proximal right humeral neck / head fracture. Labs Test 01/03/25 16:26 01/03/25 15:32 01/03/25 14:38 Range/Units Troponin I High Sensitivity < 3 L </=54 ng/L White Blood Count 11.6 H 4.4-10.8 10^3/uL Red Blood Count 4.42 L 4.5-5.90 10^6/uL Hemoglobin 11.8 L 13.5-17.5 g/dL Hematocrit 35.8 L 41.0-53.0 % Mean Corpuscular Volume 81.0 80.0-100.0 fL Mean Corpuscular Hemoglobin 26.6 L 28.0-32.0 pg Mean Corpuscular Hemoglobin Concent 32.9 32.0-36.0 g/dL Red Cell Distribution Width 16.6 H 11.8-14.3 % Platelet Count 358 140-450 10^3/uL Mean Platelet Volume 8.3 6.9-10.8 fL Neutrophils (%) (Auto) 78.0 37.0-80.0 % Lymphocytes (%) (Auto) 15.7 10.0-50.0 % Monocytes (%) (Auto) 4.7 0.0-12.0 % Eosinophils (%) (Auto) 1.2 0.0-7.0 % Basophils (%) (Auto) 0.4 0.0-2.0 % Neutrophils # (Auto) 9.0 H 1.6-8.6 10 ^3/uL Lymphocytes # (Auto) 1.8 0.4-5.4 10 ^3/uL Monocytes # (Auto) 0.5 0-1.3 10 ^3/uL Eosinophils # (Auto) 0.1 0-0.8 10 ^3/uL Basophils # (Auto) 0 0-0.2 10 ^3/uL Nucleated Red Blood Cells 0.0 % Sodium Level 141 136-145 mmol/L Potassium Level 4.6 3.5-5.1 mmol/L Chloride Level 107 98-107 mmol/L Carbon Dioxide Level 24 20-31 mmol/L Anion Gap 10 5-15 Blood Urea Nitrogen 30 H 9-23 mg/dL Creatinine 1.08 0.700-1.30 mg/dL Glomerular Filtration Rate Calc 75 >90 mL/min BUN/Creatinine Ratio 27.8 H 10.0-20.0 Serum Glucose 193 H 74-106 mg/dL Calcium Level 9.3 8.7-10.4 mg/dL POC Glucose 173 H 70-106 mg/dl SEPSIS Sepsis Screen Date sepsis recognized/suspect: Jan 03, 2025 Time Sepsis recognized/suspect: 2004 Recent Procedure: No On Antibiotic Therapy: No Respiratory Rate >20: No Heart Rate >90: Yes Temp<36 C (96.8 F) or >38.3 C: No SBP <90 or MAP <65 mmHG: No New Acute Mental Status Change: No Is the patient on CPAP, BIPAP,: No Physician Orders Chest Xray 1 View (01/03/25 14:30) Head Without Contrast (01/03/25 14:30) Continuous Ekg Monitoring 08,12,16,20,00,04 (01/03/25 14:30) Electrocardigram (01/03/25 14:30) R Shoulder 2+ View Xray (01/03/25 14:30) R Clavicle Complete Xray (01/03/25 14:30) R Humerus Xray (01/03/25 14:30) R Elbow 2v Xray (01/03/25 14:30) R Forearm Xray (01/03/25 14:30) Splints (01/03/25 ) * Orthopedic Consult (01/03/25 16:52) Admit (01/03/25 19:46) Meclizine Tablet (Antivert Tablet) (01/03/25 20:00) Atorvastatin (Lipitor) (01/03/25 22:00) Empagliflozin (Jardiance) (01/04/25 10:00) Hydrochlorothiazide Tablet (Hydrochlorot (01/04/25 10:00) Lisinopril Tablet (Zestril Tablet) (01/04/25 10:00) Gabapentin Capsule (Neurontin Capsule) (01/03/25 22:00) Basic Metabolic Panel (01/04/25 04:00) Glucose Blood (Accu-Chek Comfort Curve T (01/03/25 22:00) Insulin R (Human) (Insulin R) (01/03/25 22:00) Dextrose 50% Syringe (01/03/25 20:45) Hydrocodone-Acet 5/325mg Tab ([place] 5/32 (01/03/25 20:45) Ondansetron Hcl (Zofran) (01/03/25 20:45) Cardiac Diet-2gna,Lofat,Lochol (01/04/25 Breakfast) Condition: Stable (01/03/25 20:34) Acetaminophen Tablet (Tylenol Tablet) (01/03/25 20:45) Bedrest With Bathroom Privileg (01/03/25 20:34) Morphine Sulfate Injection (01/03/25 20:45) Vital Signs Date Time Temp Pulse Resp B/P (MAP) Pulse Ox O2 Delivery O2 Flow Rate FiO2 01/03/25 20:21 122/63 01/03/25 20:02 102 20 99 Room Air 01/03/25 20:02 97.3 102 20 122/63 (82) 99 97.3 01/03/25 14:33 98.2 67 18 155/111 98 98.2 Laboratory Tests Test 01/03/25 15:32 White Blood Count 11.6 10^3/uL (4.4-10.8) H Medications Medications Dose Ordered Sig/Freedom Route Start Time Stop Time Status Last Admin Dose Admin Fentanyl Citrate 12.5 mcg ONCE ONCE IV 01/03/25 20:15 01/03/25 20:16 DC 01/03/25 20:21 12.5 MCG Assessment/Plan Assessment/Plan Assessment Right humeral fracture Status post mechanical fall Vertigo Diabetes mellitus Hypertension Plan Admit the patient to [facility] to the hospitalist Orthopedic consultation Pain management Resume home medications Continue treatment per orders. Plan discussed with: Patient My Orders Orders - ARACELY DALTON Procedure Category Date Status Time Admit ADMIT 01/03/25 Transmitted 19:46 Meclizine Tablet PHA 01/03/25 In Process (Antivert Tablet) 20:00 Atorvastatin (Lipitor) PHA 01/03/25 Logged 22:00 Empagliflozin PHA 01/04/25 Logged (Jardiance) 10:00 Hydrochlorothiazide PHA 01/04/25 Logged Tablet (Hydrochlorot 10:00 Lisinopril Tablet PHA 01/04/25 Logged (Zestril Tablet) 10:00 Gabapentin Capsule PHA 01/03/25 Logged (Neurontin Capsule) 22:00 Basic Metabolic Panel LAB 01/04/25 Verified 04:00 Glucose Blood PHA 01/03/25 Logged (Accu-Chek Comfort 22:00 Insulin R (Human) PHA 01/03/25 Logged (Insulin R) 22:00 Dextrose 50% Syringe PHA 01/03/25 Logged 20:45 Hydrocodone-Acet PHA 01/03/25 Logged 5/325mg Tab ([place] 20:45 Ondansetron Hcl PHA 01/03/25 Logged (Zofran) 20:45 Cardiac DIET 01/04/25 Transmitted Diet-2gna,Lofat,Lochol Breakfast Condition: Stable CRUZ 01/03/25 In Process 20:34 Acetaminophen Tablet PHA 01/03/25 Logged (Tylenol Tablet) 20:45 Bedrest With Bathroom CRUZ 01/03/25 In Process Privileg 20:34 Morphine Sulfate PHA 01/03/25 Logged Injection 20:45 Date of Service: Jan 03, 2025 Billing Provider: ARACELY DALTON Common Visit Codes: [id number] INP/OBS CARE (MOD) ARACELY DALTON Jan 03, 2025 20:52
[2025-01-03] MEDS: ACCU-CHEK COMFORT CURVE STRIP VI SCH (22:00)
[2025-01-03] MEDS: ATORVASTATIN 20 MG TAB PO SCH (22:47)
[2025-01-03] MEDS: GABAPENTIN 300 MG CAP PO SCH (22:47)
[2025-01-03] MEDS: InsuLIN REG 1unit/0.01ml Soln (100units/ml) SC SCH (22:48)
[2025-01-04] VITALS (7 sets, daily range): BP systolic 120–138; BP diastolic 70–83; PULSE 96–108; RESP 16–20; TEMP 97.7–98.5; O2SAT 0–100
[2025-01-04] MEDS: HYDROcodone-ACET 5/325MG TAB PO PRN (02:35)
[2025-01-04 07:00] LABS: Calcium 9.2 mg/dL (8.7-10.4); Chloride 106 mmol/L (98-107); Potassium 3.8 mmol/L (3.5-5.1); Sodium 140 mmol/L (136-145)
[2025-01-04 07:01] LABS: Anion Gap 13 (5-15); Carbon Dioxide 21 mmol/L (20-31)
[2025-01-04 07:06] LABS: BUN/Creatinine Ratio 19.5 (10.0-20.0); Blood Urea Nitrogen 17 mg/dL (9-23); Glucose 103 mg/dL (74-106)
[2025-01-04] MEDS: EMPAGLIFLOZIN 10 MG TAB PO SCH (09:31)
--- NOTE | 2025-01-04 09:31 | DVH ---
INDICATION: surgery planning COMPARISON: XY R HUMERUS XRAY on DOS: 01/03/25, XY R CLAVICLE COMPLETE XRAY on DOS: 01/03/25, XY R SHOU LDER 2+ VIEW XRAY on DOS: 01/03/25 TECHNIQUE: CT of the rightleft shoulder was performed without contrast. Volume transverse images were obtained and reconstructed in multiple planes using bone and soft tissue algorithms. CONTRAST: None Radiation Dose Information: CTDI volume is 50.65 mGy. Dose-length product is 1191 .6 mGy*cm FINDINGS: Highly comminuted fracture of the humeral head and neck extending into the base of the tuberosities w ith significant impaction. Humeral articular surface is intact. Glenoid is unremarkable. Hemorrhage surrounding the glenohumeral joint. Underlying hemarthrosis. IMPRESSION: Highly comminuted impacted fracture of the humeral head and neck. All CT scans at this medical facility are performed using dose modulation techniques as appropriate t o a performed exam including the following: Automated exposure control was utilized; Adjustment of th e MA And/or KV according to patient size; And use of iterative reconstruction technique.
[2025-01-04] MEDS: LISINOPRIL 5 MG TAB PO SCH (09:32)
[2025-01-04] MEDS: hydroCHLOROthiazide 25 MG TAB PO SCH (09:32)
--- NOTE | 2025-01-04 11:33 | DVHPN2 ---
Progress Note Date Seen: Jan 04, 2025 Medical Necessity Reason Pt with a Central, PICC or Fol: No Subjective Patient reports: No new complaints Review of Systems: HEENT:Normal, CVS:Normal, RESPIRATORY:Normal, GI:Normal, :Normal, MSK:Normal, NEURO:Normal Objective vital signs Vital Sign Date Time Temp Pulse Resp B/P (MAP) Pulse Ox O2 Delivery O2 Flow Rate FiO2 01/04/25 09:32 125/65 01/04/25 08:00 96 16 96 Room Air* 0 21 01/04/25 04:45 98.5 98.5 Total Intake and Output 01/03/25 01/03/25 01/04/25 15:00 23:00 07:00 Intake Total 100 ml Balance 100 ml medications Current Medications Medications Dose Ordered Sig/Freedom Route Start Time Stop Time Status Last Admin Dose Admin Meclizine HCl 25 mg Q6HPRN PRN PO 01/03/25 20:00 Atorvastatin Calcium 40 mg HS PO 01/03/25 22:00 01/03/25 22:47 40 MG Empaglifozin 25 mg DAILY PO 01/04/25 10:00 01/04/25 09:31 25 MG Hydrochlorothiazide 12.5 mg DAILY PO 01/04/25 10:00 01/04/25 09:32 12.5 MG Lisinopril 2.5 mg DAILY PO 01/04/25 10:00 01/04/25 09:32 2.5 MG Gabapentin 300 mg TID PO 01/03/25 22:00 01/04/25 05:43 300 MG Diagnostic Test (Pha) 1 strip ACHS 01/03/25 22:00 01/04/25 05:46 1 STRIP Insulin Human Regular ACHS SC 01/03/25 22:00 01/04/25 11:07 4 UNITS Dextrose 50 ml UD PRN IV 01/03/25 20:45 Acetaminophen/ Hydrocodone Bitart 1 tab Q4HP PRN PO 01/03/25 20:45 01/04/25 02:35 1 TAB Ondansetron HCl 4 mg Q4HP PRN IV 01/03/25 20:45 Acetaminophen 650 mg Q6HP PRN PO 01/03/25 20:45 Morphine Sulfate 2 mg Q4HPRN PRN IV 01/03/25 20:45 Examination: GENERAL:Normal, HEENT:Normal, NECK:Normal, LUNGS:Normal, CVS:Normal, ABDOMEN:Normal, MSK:Normal, MSK:Abnormal (right shoulder bruising, tender), SKIN:Normal, NEURO:Normal, :Normal laboratory and microbiology Laboratory Tests 01/04/25 05:22 01/03/25 15:32 Test 01/04/25 05:22 Range/Units Serum Glucose 103 74-106 mg/dL Problem List/Assessment/Plan Problem List/Assessment/Plan #1 right shoulder fracture/comminuted: orhto eval, pain meds #2 dm: ssi #3 htn #4 hyperlipidemia #5 dizziness advance care planning-full code- time spent 18 mins Plan discussed with: Patient Date of Service: Jan 04, 2025 Billing Provider: ARACELY IRENE MD Common Visit Codes: [id number] INP/OBS CARE(HIGH) Secondary Visit Codes: [id number] CARE PLAN 30 MINUTES ARACELY IRENE MD Jan 04, 2025 11:33
[2025-01-04] MEDS: HYDROmorphone HCL 2 MG/ML VL/or syr IV ONE (12:09)
[2025-01-04] MEDS: HYDROmorphone HCL 2 MG/ML VL/or syr IV PRN (16:22)
[2025-01-05] VITALS (10 sets, daily range): BP systolic 135–148; BP diastolic 77–88; PULSE 108–130; RESP 17–19; TEMP 98.1–98.6; O2SAT 95–99
[2025-01-05 06:50] LABS: Hematocrit 35.2 % (41.0-53.0); Hemoglobin 11.7 g/dL (13.5-17.5); Mean Corpuscular Hemoglobin 26.7 pg (28.0-32.0); Mean Corpuscular Volume 80.3 fL (80.0-100.0); Nucleated Red Blood Cells % 0.0 %
[2025-01-05 07:07] LABS: Alanine Aminotransferase 14 U/L (7-40); Albumin 4.3 g/dL (3.2-4.8); Alkaline Phosphatase 109 U/L (46-116); Anion Gap 16 (5-15); BUN/Creatinine Ratio 17.3 (10.0-20.0); Blood Urea Nitrogen 14 mg/dL (9-23); Calcium 9.5 mg/dL (8.7-10.4); Carbon Dioxide 21 mmol/L (20-31); Chloride 102 mmol/L (98-107); Potassium 3.7 mmol/L (3.5-5.1); Sodium 139 mmol/L (136-145); Total Protein 7.7 g/dL (5.7-8.2)
[2025-01-05 07:08] LABS: Bilirubin, Total 0.7 mg/dL (0.2-1.0)
[2025-01-05 07:10] LABS: Glucose 130 mg/dL (74-106)
--- NOTE | 2025-01-05 13:37 | DVHPN2 ---
Progress Note Date Seen: Jan 05, 2025 Medical Necessity Reason Pt with a Central, PICC or Fol: No Subjective Patient reports: No new complaints Review of Systems: HEENT:Normal, CVS:Normal, RESPIRATORY:Normal, GI:Normal, :Normal, MSK:Normal, NEURO:Normal Objective vital signs Vital Sign Date Time Temp Pulse Resp B/P (MAP) Pulse Ox O2 Delivery O2 Flow Rate FiO2 01/05/25 10:20 114 17 123/87 01/05/25 08:00 98 Room Air* 0 21 01/05/25 05:00 98.6 98.6 Total Intake and Output 01/04/25 01/04/25 01/05/25 15:00 23:00 07:00 Intake Total 900 ml 400 ml Output Total 400 ml Balance 900 ml 0 ml medications Current Medications Medications Dose Ordered Sig/Freedom Route Start Time Stop Time Status Last Admin Dose Admin Meclizine HCl 25 mg Q6HPRN PRN PO 01/03/25 20:00 Atorvastatin Calcium 40 mg HS PO 01/03/25 22:00 01/04/25 21:42 40 MG Empaglifozin 25 mg DAILY PO 01/04/25 10:00 01/05/25 09:05 25 MG Gabapentin 300 mg TID PO 01/03/25 22:00 01/05/25 05:23 300 MG Diagnostic Test (Pha) 1 strip ACHS 01/03/25 22:00 01/05/25 05:34 1 STRIP Insulin Human Regular ACHS SC 01/03/25 22:00 01/05/25 11:19 3 UNITS Dextrose 50 ml UD PRN IV 01/03/25 20:45 Acetaminophen/ Hydrocodone Bitart 1 tab Q4HP PRN PO 01/03/25 20:45 01/04/25 02:35 1 TAB Ondansetron HCl 4 mg Q4HP PRN IV 01/03/25 20:45 Acetaminophen 650 mg Q6HP PRN PO 01/03/25 20:45 Hydromorphone HCl 0.5 mg Q4HPRN PRN IV 01/04/25 11:30 01/05/25 10:20 0.5 MG Examination: GENERAL:Normal, HEENT:Normal, NECK:Normal, LUNGS:Normal, CVS:Normal, ABDOMEN:Normal, MSK:Normal, MSK:Abnormal (left leg wound, right arm bruising), SKIN:Normal, NEURO:Normal, :Normal laboratory and microbiology Laboratory Tests 01/05/25 05:55 Test 01/05/25 05:55 Range/Units Serum Glucose 130 H 74-106 mg/dL Microbiology Date/Time Source Procedure Growth Status 01/04/25 19:42 Leg Left Gram Stain - Final Resulted 01/04/25 19:42 Leg Left Wound Culture - Preliminary Resulted Problem List/Assessment/Plan Problem List/Assessment/Plan #1 right shoulder fracture/comminuted: surg in am, dw dr Tierney #2 dm: ssi #3 htn #4 hyperlipidemia #5 dizziness #6 right leg wound - chronic advance care planning-full code- time spent 18 mins Plan discussed with: Patient My Orders My Orders Orders - ARACELY IRENE MD Procedure Category Date Status Time Cleanse Wound With CRUZ 01/04/25 In Process Wound Clean 12:00 * Dietary Consult CONS 01/04/25 Transmitted 19:22 Wound Culture W/ Gs ADELINA 01/04/25 In Process 19:29 Urinalysis LAB 01/05/25 Uncollected 13:34 Npo After Midnight CRUZ 01/05/25 Verified 13:34 Npo (Nothing By DIET 01/06/25 Verified Mouth) Diet Breakfast PTPTT LAB 01/05/25 Verified 13:34 NS PHA 01/05/25 Verified 13:45 Date of Service: Jan 05, 2025 Billing Provider: ARACELY IRENE MD Common Visit Codes: [id number] INP/OBS CARE(HIGH) ARACELY IRENE MD Jan 05, 2025 13:37
[2025-01-05] MEDS: HYDROmorphone HCL 2 MG/ML VL/or syr IV PRN (14:31)
[2025-01-05 15:52] LABS: INR 1.12 (0.9-1.15); Partial Thromboplastin Time 33.3 SEC (24.5-34.5); Prothrombin Time 11.7 sec (9.3-11.8)
[2025-01-05] MEDS: SODIUM CHLORIDE 0.9% 1,000 ML IV SCH (16:17)
--- NOTE | 2025-01-05 19:56 | DVHPN2 ---
Progress Note Progress Note Date: January 06, 2025 Consulting Service: Orthopedics Referring Service: inpatient team Reason for Consult: Right shoulder pain HPI: The patient was seen today after being admitted for pain control following his ER visit. Inpatient team requested an orthopedic consultation for further evaluation. Right Shoulder: The patient has a right shoulder proximal humerus fracture, for which he was seen in ER yesterday by me and advised ER on placement in Sling , he was then placed in a Splint and admitted for pain control to inpatient team by ER. Today on my interview splint was found to be contributing to increased pain and discomfort. Today splint was removed and replaced with a sling for immobilization, oral consent for right shoulder subacromial Lidocaine 1% w/o epi was obtained to help ease pain while splint was removed and replaced with Sling, Patient tolerate swap well with the help of this injection with no complications. Following the sling change, patient reports much better pain control On further interview noted wound of the left knee, The patient reports that since July 2024, after a fall, he sustained a traumatic open left knee injury for which he was seen and treated at [facility], where surgery was performed (specific details of procedure unknown). The patient states the wound has not completely closed.He remains under wound care management, previously treated with wound VAC therapy, followed by transitioned to wet-to-dry dressing changes. The patient has an upcoming plastic surgery appointment for preoperative evaluat ion for possible skin grafting of the left knee wound. Exam & Wound Findings: Right shoulder ecchymosis, no open wound, unable to perform ROM right shoulder 2/2 pain, Able to wiggle all his fingers and thumb, Gross N/V intact for Radial, Ulnar , Medial , AIN/PIN, No elbow or wrist pain with palpation, ROM for Elbow and Right wrist grossly intact. Left knee wound exam dressing removed: Anterior knee incision /open wound Size is 14 CM X 9 CM,appears healthy with well-defined margins, no signs of erythema, drainage, necrosis, or infection. The wound bed demonstrates good granulation tissue formation and overall progress toward healing. Soft left calf compartment, gross N/V intact LUE. Additional History: The patient has type 2 diabetes mellitus with a history of severe bilateral lower-extremity neuropathy. He reports burning, numbness, and pain over the plantar surfaces of both feet, significantly affecting sleep. He was previously prescribed gabapentin 300 mg daily by the hospitalist team; however, his home regimen under his primary provider is gabapentin 3200 mg daily(Per patient and his ), Patient report 300mg Gabapentine daily is not providing him adequate neuropathic pain control. Plan: Right shoulder : splint removed and Changed to Sling with good pain relief reported by patient with more comfort.No surgical intervention for the right shoulder will be performed until after the left knee wound grafting and full wound healing. Pt can followup with [facility] or [facility] Orthopedic as outpatient for Right shoulder followups and future care, till than manage right shoulder fracture non op w/ regular Orthopedic followups. Left knee : Wet-to-dry dressing completed today for ANterior left knee wound, changes will be continued per wound care protocol every 24 hrs. Nursing staff were instructed to maintain the same dressing regimen. Once discharged advised patient and to keep Plastics appointment at [facility] on this fri for preop for Left knee graft. Severe bilateral lower-extremity neuropathy : Following discussion with Dr. Tierney, the patients gabapentin was adjusted to 600 mg TID, and the prior 300 mg daily regimen was discontinued. Inpatient team to further manage pain control , Once pain is controlled patient can be discharged from Ortho standpoint. Discussion: Case reviewed and discussed with Dr. Otis Tierney, who concurs with the above plan, including medication adjustment and conservative orthopedic management. Patient and were informed and are in agreement with the plan Plan discussed with: Patient, Other (bedside nurse and patient ) Visit Coding Surgery Date of Service if different f: Jan 05, 2025 Billing Provider: MAURICE KURTZ Surgery Visit Codes: [id number] - INP CONSULT <55 MIN MAURICE KURTZ Jan 05, 2025 19:56
[2025-01-05] MEDS: GABAPENTIN 300 MG CAP PO SCH (22:17)
[2025-01-06] VITALS: BP 149/83; PULSE 113; RESP 20; TEMP 98.3; O2SAT 96
[2025-01-06 05:00] VITALS: BP 151/87; PULSE 127; RESP 20; TEMP 98.3; O2SAT 96
[2025-01-06 09:38] LABS: Urine Protein, UAD Negative (Negative)
[2025-01-06 09:48] VITALS: BP 132/76; PULSE 119; RESP 17; TEMP 98.6; O2SAT 96
[2025-01-06] MEDS ORDERED: PERCOT PO (10:57)
[2025-01-06] MEDS ORDERED: DOCU-94 PO (10:57)
--- NOTE | 2025-01-06 10:59 | DVHDS2 ---
Discharge Summary Date of Admission Jan 03, 2025 at 19:46 Date of Discharge: Jan 06, 2025 Labs/Diagnostic Data: Laboratory Results Test 01/06/25 06:25 01/06/25 06:22 01/05/25 15:10 01/05/25 05:55 Urine Color Light-yellow (Yellow) Urine Clarity Clear (Clear) Urine pH 5.5 (5.0-9.0) Urine Specific [place] 1.025 (1.001-1.035) Urine Protein Negative (Negative) Urine Ketones 2+ (Negative) Urine Blood Negative /uL (Negative) Urine Nitrite Negative (Negative) Urine Bilirubin Negative (Negative) Urine Urobilinogen Normal mg/dL (Negative) Urine Leukocyte Esterase Negative /uL (Negative) Urine RBC <1 /hpf (0 - 3) Urine Microscopic WBC < 1 /HPF (0-3) Urine Squamous Epithelial Cells None seen /hpf (<5) Urine Bacteria None seen /hpf (None Seen) Urine Glucose 4+ mg/dL (Normal) POC Glucose 173 mg/dl (70-106) Prothrombin Time 11.7 sec (9.3-11.8) Prothrombin Time INR 1.12 (0.9-1.15) Activated Partial Thromboplast Time 33.3 SEC (24.5-34.5) White Blood Count 12.4 10^3/uL (4.4-10.8) Red Blood Count 4.38 10^6/uL (4.5-5.90) Hemoglobin 11.7 g/dL (13.5-17.5) Hematocrit 35.2 % (41.0-53.0) Mean Corpuscular Volume 80.3 fL (80.0-100.0) Mean Corpuscular Hemoglobin 26.7 pg (28.0-32.0) Mean Corpuscular Hemoglobin Concent 33.2 g/dL (32.0-36.0) Red Cell Distribution Width 16.5 % (11.8-14.3) Platelet Count 352 10^3/uL (140-450) Mean Platelet Volume 8.5 fL (6.9-10.8) Neutrophils (%) (Auto) 77.8 % (37.0-80.0) Lymphocytes (%) (Auto) 14.3 % (10.0-50.0) Monocytes (%) (Auto) 7.4 % (0.0-12.0) Eosinophils (%) (Auto) 0.2 % (0.0-7.0) Basophils (%) (Auto) 0.3 % (0.0-2.0) Neutrophils # (Auto) 9.7 10 ^3/uL (1.6-8.6) Lymphocytes # (Auto) 1.8 10 ^3/uL (0.4-5.4) Monocytes # (Auto) 0.9 10 ^3/uL (0-1.3) Eosinophils # (Auto) 0 10 ^3/uL (0-0.8) Basophils # (Auto) 0 10 ^3/uL (0-0.2) Nucleated Red Blood Cells 0.0 % Sodium Level 139 mmol/L (136-145) Potassium Level 3.7 mmol/L (3.5-5.1) Chloride Level 102 mmol/L (98-107) Carbon Dioxide Level 21 mmol/L (20-31) Anion Gap 16 (5-15) Blood Urea Nitrogen 14 mg/dL (9-23) Creatinine 0.81 mg/dL (0.700-1.30) Glomerular Filtration Rate Calc 97 mL/min (>90) BUN/Creatinine Ratio 17.3 (10.0-20.0) Serum Glucose 130 mg/dL (74-106) Hemoglobin A1c 7.9 % A1C (<5.7) Calcium Level 9.5 mg/dL (8.7-10.4) Total Bilirubin 0.7 mg/dL (0.2-1.0) Aspartate Amino Transferase (AST) 28 U/L (13-40) Alanine Aminotransferase (ALT) 14 U/L (7-40) Alkaline Phosphatase 109 U/L (46-116) Total Protein 7.7 g/dL (5.7-8.2) Albumin 4.3 g/dL (3.2-4.8) Test 01/03/25 16:26 Troponin I High Sensitivity < 3 ng/L (</=54) Other Laboratory Tests 01/05/25 05:55 Brief Hx & Hospital Course: see dictated note Condition at Discharge: Fair Final Diagnosis/Problems List right shoulder fracture Discharge Disposition: Home Discharge Instruct/Medications Scheduled Aripiprazole (Abilify), 1 TAB PO DAILY, (Reported) Ascorbic Acid (Vitamin C Tablet), 1 TAB PO DAILY, (Reported) Atorvastatin Calcium (Atorvastatin Calcium), 1 TAB PO DAILY, (Reported) Docusate Sodium (Colace), 1 CAP PO BID, (Reported) Dorzolamide-Timolol (Dorzolamide Hcl/Timolol M), 1 DROP EACHEYE BID, (Reported) Duloxetine Hcl (Cymbalta), 1 CAP PO DAILY, (Reported) Fexofenadine Hydrochloride (Camilla Allergy), 1 TAB PO DAILY, (Reported) Gabapentin (Gabapentin), 1 CAP PO TID, (Reported) Glipizide (Glipizide), 1 TAB PO BID, (Reported) Hydrochlorothiazide (Hydrochlorothiazide), 1 CAP PO DAILY, (Reported) Latanoprost (Xalatan), 1 DROP EACHEYE QPM, (Reported) Lisinopril (Lisinopril), 1 TAB PO DAILY, (Reported) Metformin Hydrochloride (Metformin Hcl), 1 TAB PO BID, (Reported) Multiple Vitamin (Multivitamins), 1 TAB PO DAILY, (Reported) Naproxen (Naprosyn Tablet), 1 TAB PO BID, (Reported) Sitagliptin Phosphate (Januvia), 1 TAB PO DAILY, (Reported) Tamsulosin Hcl (Tamsulosin Hcl), 1 CAP PO DAILY, (Reported) Scheduled PRN Docusate Sodium (Colace), 100 MG PO BIDPRN PRN Oxycodone W/ Acetaminophen (Percocet 5/325MG), 1 TAB PO TID PRN Miscellaneous Medications Clotrimazole (Lotrimin), 1 APPLIC TOP, (Reported) Empagliflozin (Jardiance), 25 MG PO, (Reported) Hydrocodone-Acetaminophen (Hydrocodone/Acetaminophen 5-325 mg), 1 TAB PO, (Reported) Insulin Glargine-Yfgn (Insulin Glargine), 100 UNIT SC, (Reported) Lactic Acid (Ammonium Lactate), 12 % EX, (Reported) Discharge Statement: "Patient was advised to return to the ER or call 911 if any headaches, dizziness, shortness of breath, chest pain, abdominal pain, bleeding, fevers, or worsening of medical condition. Patient was counseled about treatment plan, medications, possible side effects, patientverbalized understanding. All questions were answered to the best of my ability. This discharge took greater then 30 minutes in planning, reviewing documentation, counseling the patient, and discussing with other team members." ASSESSMENT ASSESSMENT Assessment Date of Service: Jan 06, 2025 Billing Provider: ARACELY IRENE MD Common Visit Codes: [id number] DISCH DAY >30min ARACELY IRENE MD Jan 06, 2025 10:59
--- NOTE | 2025-01-06 11:21 | DVHDS ---
HISTORY OF PRESENT ILLNESS: The patient is a 69-year-old gentleman who was admitted after he had a fall with subsequent pain in the right shoulder. The patient has a history of diabetes, hypertension, hyperlipidemia, and wound on the left leg. HOSPITAL COURSE: The patient had a shoulder CT that showed a highly comminuted impacted fracture of the humeral head and neck. The patient had a CT of the head that showed no acute abnormality. The patient was seen in Orthopedics consult by Dr. Tierney. The patient's hemoglobin A1c was 7.9. The patient, as per plan, will now be discharged home to have his surgery done on the left leg at [place] followed by subsequent surgical intervention on the right shoulder. The patient will be discharged home to be on Percocet p.r.n. for pain and Colace p.r.n. for constipation. He will follow up with his primary care and have home health for wound care. FINAL DIAGNOSES: * Status post fall with comminuted right shoulder fracture. * Diabetes mellitus. * Hypertension. * Hyperlipidemia. * Left leg wound. Time spent in discharge planning and review of plan with the patient and nursing was 38 minutes. MD CARLOS A Sanford/ERICA TID: [id number] RECEIPT: [id number]
[2025-01-06 13:00] VITALS: BP 135/81; PULSE 121; RESP 18; TEMP 98.2; O2SAT 94
== END 2025-01-06 16:36 | disposition home health service (06) | DRG 563 ==
LOC: ER 14:21 → EDBD 14:21 → OVERFLOW 19:46 → WEST WING 01-04 02:23
PROVIDERS: ADMIT Internal Medicine; ATTEND Internal Medicine
PROC: 2W5 Placement, Anatomical Regions, Removal (ICD-10-PCS; principal; 2025-01-06)
DX: S42.211A Unspecified displaced fracture of surgical neck of right humerus, initial encounter for closed fracture (principal); S42.291A Other displaced fracture of upper end of right humerus, initial encounter for closed fracture; I10 Essential (primary) hypertension; E11.9 Type 2 diabetes mellitus without complications; E78.5 Hyperlipidemia, unspecified; W18.30XA Fall on same level, unspecified, initial encounter; K59.00 Constipation, unspecified; Z79.4 Long term (current) use of insulin; Z79.899 Other long term (current) drug therapy; Y93.89 Activity, other specified; Y92.89 Other specified places as the place of occurrence of the external cause; Y99.8 Other external cause status
CPT/HCPCS: 36415; 70450; 71045; 73000; 73030; 73060; 73070; 73090; 73200; 80048; 80053; 81001; 82962; 83036; 84484; 85025; 85610; 85730; 87077; 87081; 87186; 87205; 96374; 99291; G0378; J1815